=== PATIENT | male | born 1960 | race African-American/Black ===

== ENCOUNTER 2017-11-06 18:01 | Observation (INO) | payer SELFPAY ==
[~2017-11-06] VITALS: Ht 193 cm; Wt 246.8 kg
[2017-11-06] MEDS ORDERED: ASPIRIN 81 MG CHEW TAB PO ONE ×2 (18:15→22:30)
[2017-11-06 19:00] LABS: BASOPHILS % 0.3 % (0.0-1.0); EOSINOPHILS # (AUTO) 0.5 (0.0-0.4); EOSINOPHILS % 6.6 % (0.0-6.0); HEMATOCRIT 46.2 % (38.2-49.6); HEMOGLOBIN 14.1 g/dL (14.0-18.0); LYMPHOCYTES # (AUTO) 2.5 (1.0-3.2); LYMPHOCYTES % 33.8 % (18.0-39.1); MEAN CORPUSCULAR HEMOGLOBIN 27.5 pg (28-32); MEAN CORPUSCULAR HGB CONC 30.5 g/dL (31-35); MEAN CORPUSCULAR VOLUME 90.2 fL (81-99); MONOCYTES # (AUTO) 0.6 (0.2-0.8); MONOCYTES % 8.4 % (4.4-11.3); NEUTROPHILS # (AUTO) 3.7 (2.1-6.9); NEUTROPHILS % 50.6 % (38.7-80.0); PLATELET COUNT 231 x10e3/uL (140-360); RED BLOOD COUNT 5.12 x10e6/uL (4.3-5.7); RED CELL DISTRIBUTION WIDTH 14.1 % (11.7-14.4)
[2017-11-06 19:11] LABS: INR 1.11; PROTHROMBIN TIME 13.5 seconds (11.9-14.5)
[2017-11-06 19:12] LABS: PARTIAL THROMBOPLASTIN TIME 27.5 seconds (23.8-35.5)
--- NOTE | 2017-11-06 19:17 | Diagnostic Imaging Report ---
CHEST SINGLE (PORTABLE), 11/06/2017 6:09 PM Technique: CHEST SINGLE (PORTABLE) Comparison: None available. Clinical history: Chest pain Findings: See Impression Impression: Severely limited by portable technique and body habitus. Suggestion of diffuse bilateral opacities. Costophrenic angles are excluded. Recommend upright PA and lateral for better assessment. Signed by: Dr Rebecca Worthington MD on 11/06/2017 7:14 PM
[2017-11-06 19:18] LABS: ALANINE AMINOTRANSFERASE 16 IU/L (0-55); ALBUMIN 3.3 g/dL (3.5-5.0); ALBUMIN/GLOBULIN RATIO 0.6 (0.8-2.0); ALKALINE PHOSPHATASE 68 IU/L (40-150); ANION GAP 15.1 mmol/L (8-16); BLOOD UREA NITROGEN 12 mg/dL (7-26); BUN/CREATININE RATIO 9 (6-25); CALCIUM 9.5 mg/dL (8.4-10.2); CARBON DIOXIDE 28 mmol/L (22-29); CHLORIDE 99 mmol/L (98-107); CREATINE KINASE 778 IU/L (30-200); CREATININE, SERUM 1.37 mg/dL (0.72-1.25); EST GLOMERULAR FILTRATION RATE > 60 ML/MIN (60-); GLUCOSE 171 mg/dL (74-118); POTASSIUM 4.1 mmol/L (3.5-5.1); SODIUM 138 mmol/L (136-145)
--- NOTE | 2017-11-06 20:33 | Diagnostic Imaging Report ---
CHEST 2 VIEWS, Technique: CHEST 2 VIEWS Comparison: Earlier same day Clinical history: Intermittent chest pain , lateral view needed DISCUSSION: See impression IMPRESSION: Image quality somewhat degraded by soft tissue attenuation. 1. Borderline enlarged cardiac silhouette. 2. Central vascular congestion. No edema or consolidation. 3. No effusion or pneumothorax. Signed by: Dr Rebecca Worthington MD on 11/06/2017 8:30 PM
[2017-11-06 20:44] LABS: BILIRUBIN,URINE NEGATIVE (NEGATIVE); CLARITY,URINE HAZY (CLEAR); COLOR,URINE YELLOW (YELLOW); KETONES,URINE NEGATIVE (NEGATIVE); LEUKOCYTE ESTERASE ,URINE NEGATIVE (NEGATIVE); NITRITE,URINE NEGATIVE (NEGATIVE); PROTEIN,URINE DIPSTICK TRACE (NEGATIVE); URINE UROBILINOGEN 0.2 mg/dL (0.2 - 1)
[2017-11-06 20:48] LABS: BACTERIA,URINE FEW /HPF; EPITHELIAL CELLS,URINE FEW /LPF; RBC,URINE 0-5 /HPF (0-5); WBC,URINE (MAN) 0-5 /HPF (0-5)
[2017-11-06] MEDS ORDERED: AMARYL4 MG PO (22:18)
[2017-11-06] MEDS ORDERED: MORPHINE SULFATE 2 MG/ML SYR IV PRN (22:30)
[2017-11-06] MEDS ORDERED: DEXTROSE 50% SYRINGE 50 ML IV PRN (22:30)
[2017-11-06] MEDS ORDERED: ONDANSETRON HCL INJ 2 MG/ML VIAL IV PRN (22:30)
[2017-11-06] MEDS ORDERED: LISINOPRIL10 MG PO (22:44)
[2017-11-06] MEDS ORDERED: NOVOLIN N100 UNIT/1 (22:44)
[2017-11-06] MEDS ORDERED: BUMETANIDE1 MG PO (22:44)
[2017-11-06] MEDS ORDERED: ASPIR 8181 MG PO (22:44)
[2017-11-06 23:40] VITALS: BP 137/83
[2017-11-07] VITALS: BP 137/83
[2017-11-07 04:00] VITALS: BP 128/65
[2017-11-07 05:26] LABS: CHOL/HDL RATIO 3.1 (3.9-4.7)
[2017-11-07 05:39] LABS: CREATINE KINASE MB 3.5 ng/mL (0-5.0)
[2017-11-07] MEDS: INSULIN REGULAR, HUMAN 100 UNIT/1 ML 3ML VIAL SQ SCH ×2 (07:30→12:29)
[2017-11-07 07:46] VITALS: BP 112/66
[2017-11-07] MEDS ORDERED: GLIMEPIRIDE 2 MG TAB PO SCH (09:00)
[2017-11-07] MEDS ORDERED: ACETAMINOPHEN 325 MG TAB PO PRN (09:00)
[2017-11-07] MEDS ORDERED: ASPIRIN 81 MG CHEW TAB PO SCH (09:00)
[2017-11-07] MEDS ORDERED: NON-FORMULARY MEDICATION (Glimepiride (Amaryl) 4 MG) PO SCH (09:00)
[2017-11-07] MEDS ORDERED: LISINOPRIL 10 MG TAB PO SCH (09:00)
[2017-11-07] MEDS ORDERED: BUMETANIDE 1 MG TAB PO SCH (09:00)
--- NOTE | 2017-11-07 11:02 | History and Physical ---
CHIEF COMPLAINT: Chest pain. HISTORY OF PRESENT ILLNESS: This is a 57-year-old male, morbidly obese, more than 500 pounds, who comes into the ED with complaint of chest pain. Patient reports that the chest pain has been on and off for the last 2 weeks. He reports it is substernal with more pressure-like symptoms. Denies any radiation. He reports that about a year ago he had similar chest pain and was referred to a optical laboratory mechanic and was cleared. Patient was seen and evaluated at bedside on the medical floor, currently doing well with no other complaints. He is chest pain-free now. Due to his body habitus, he is unable to get a cardiac stress test or even if he needed a heart cath, it would be very difficult. I spoke with cardiology; and if his troponins are negative with a normal echo, he will be discharged later today. REVIEW OF SYSTEMS: Pertinent positives: Chest pain and palpitations. Pertinent negatives: Denies any nausea, vomiting, diarrhea, dysuria, hematuria, frequency, urgency, lightheadedness, dizziness, abdominal pain, headache, shortness breath, cough, congestion, fever or any other complaints. The rest of the 14-point review of systems have been reviewed with the patient and are negative. ALLERGIES: PROPRANOLOL. HOME MEDICATIONS: See med reconciliation form. PAST MEDICAL HISTORY: Morbidly obese, chest pain, diabetes, hypertension. SURGICAL HISTORY: None. FAMILY HISTORY: Hypertension and diabetes. SOCIAL HISTORY: No drugs. No alcohol. He does not smoke. VITAL SIGNS: He is afebrile, temperature 97.9, pulse 80, respiratory rate 16, blood pressure 112/66, pulse ox 95% on room air. LAB FINDINGS: White count 7.2, hemoglobin 14, hematocrit 46, platelets 231. Coagulation: PT 13, INR 1.1, PTT 27. Chemistries: Sodium 138, potassium 4.1, chloride 99, bicarbonate 24, anion gap of 15. BUN is 12, and creatinine is 1.37. His glucose was 171. His troponins were negative times 2. Albumin was 3.3, and LDL was 40. Urinalysis was negative. IMAGING STUDIES: Chest x-ray shows borderline enlarged cardiac silhouette. No edema or consolidation. Otherwise, no acute findings seen. No vascular congestion. PHYSICAL EXAMINATION GENERAL: Not in acute distress. Alert and oriented times 3. Cooperative on examination. He is morbidly obese. HEENT: Head is normocephalic and atraumatic. Eyes: Pupils are equal and reactive to light bilaterally. The extraocular movements are intact bilaterally. NECK: Supple with good range of motion. THROAT: No evidence of any erythema or exudates in the posterior pharynx, has poor dentition. PULMONARY: Clear to auscultation bilaterally. No wheezing, no rales, no rhonchi, no crackles appreciated. CARDIOVASCULAR: Positive S1, S2. No murmurs, rubs or gallops appreciated. ABDOMEN: Soft, nondistended, nontender to palpation. Bowel sounds present. MUSCULOSKELETAL: Strength is 5/5 throughout. No edema. No muscle deficit on examination. No weakness appreciated. NEUROLOGIC: Cranial nerves II through XII are grossly intact. No evidence of neurologic deficit. SKIN: Intact, warm to touch. Good cap refill. PSYCHIATRIC: Normal affect and mood. EXTREMITIES: No edema. Good range of motion throughout. IMPRESSION 1. Chest pain. 2. Morbidly obese. 3. Diabetes. 4. Hypertension. PLAN: At this time, I spoke with the optical laboratory mechanic. Due to the fact that the patient is unlikely to be able to get a stress test due to his body habitus, she agreed that if his next cardiac enzyme is negative, he will be discharged home. Also if his echo is normal, he will be discharged. We are going to resume all of his home medications with no changes in his regimen. I discussed this with the patient, which he agreed with plan of care. I also discussed this with the nurse. If the next cardiac enzyme and echo are normal, we will discharge home, and he needs to follow up with his PCP in 1 week. Job#: [id number]
[2017-11-07 11:29] VITALS: BP 131/80
--- NOTE | 2017-11-07 13:22 | Consultation ---
DATE OF CONSULTATION: November 07, 2017 CARDIOLOGY CONSULTATION REQUESTING PHYSICIAN: Dr. Daigle. REASON FOR CONSULTATION: Chest pain. 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 The patient reports he has had chest pain for the last 2 weeks. The pain is 4 out of 10 in severity without radiation, shortness of breath, nausea or diaphoresis. He was not able to characterize the chest pain. In addition, the patient has been complaining of palpitations for approximately a week and a half with episodes occurring intermittently, lasting from a few minutes to a few hours. He denies any edema, orthopnea or PND but notes he underwent nuclear stress test approximately 1 year ago which was normal. REVIEW OF SYSTEMS: Negative except as per HPI. PAST MEDICAL HISTORY 1. Diabetes mellitus. 2. 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 3. Hypertension. 4. Chronic kidney disease. 5. Morbid obesity. PAST SURGICAL HISTORY: Tonsillectomy. ALLERGIES: PLEASE SEE EMR. MEDICATIONS: Please see medication list. SOCIAL HISTORY: Denies tobacco, alcohol or illicit drugs. FAMILY HISTORY: Pertinent for a father who of a myocardial infarction. PHYSICAL EXAMINATION VITAL SIGNS: Temperature 97.9 degrees, pulse 89, respiratory rate 16, blood pressure 112/66, oxygen saturation 95% on room air. GENERAL: A morbidly obese man in no acute distress. HEENT: Normocephalic, atraumatic. Pupils equal, no scleral icterus. NECK: Supple. No thyromegaly or cervical lymphadenopathy, no carotid bruits. LUNGS: Clear to auscultation bilaterally. No wheezes or crackles. CARDIOVASCULAR: Normal rate, regular rhythm. No murmur appreciated. Normal S1 and S2. Distant heart sounds. ABDOMEN: Soft, nontender. EXTREMITIES: No edema. Right lower extremity with lymphedema present. NEURO: Nonfocal exam. LABS: WBC 7.28, hemoglobin 14.1, hematocrit 46.2, platelets 231. Sodium 138, potassium 4.1, chloride 99, CO2 28, BUN 12, creatinine 1.37. Troponin 0.017. Triglycerides 168, cholesterol 110, LDL 40, HDL 36. CHEST X-RAY: Borderline enlarged cardiac silhouette. Central vascular congestion. No edema or consolidation. No effusion or pneumothorax. ELECTROCARDIOGRAM: With normal sinus rhythm, left axis deviation and low voltage QRS. IMPRESSION 1. Chest pain. 2. 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 3. Diabetes mellitus. 4. Hypertension. 5. Chronic kidney disease. 6. Morbid obesity. RECOMMENDATIONS: Trend cardiac enzymes to rule out myocardial infarction. Echocardiogram has been ordered, and we will review the images once it is done. Unfortunately, due to the patient's body habitus he exceeds the weight limit for both the nuclear camera as well as the cath table. Continue home cardiac medications. If he rules out for a myocardial infarction and echocardiogram is unremarkable, he may be discharged home to follow up as an outpatient. Thank you for this consult. We will continue to follow. Job#: [id number] ENEIDA
[2017-11-07 15:03] LABS: CREATINE KINASE 474 IU/L (30-200)
[2017-11-07 15:36] VITALS: BP 121/58
--- NOTE | 2017-11-08 13:07 | Discharge Summary ---
DISCHARGE DIAGNOSES 1. Chest pain likely atypical. 2. Morbidly obese. 3. Type 2 diabetes. 4. Hypertension. SOCIAL SERVICES COUNSELOR: Cardiology. VITAL SIGNS: His temperature is 97.9, pulse 77, respiratory rate is 19, blood pressure 121/58, pulse ox 96% on room air. LAB FINDINGS: Show white count 7.2, hemoglobin 14, hematocrit is 46, platelets of 231. Coagulations are normal. CHEMISTRY: Sodium was 138, his potassium was 4.1, his chloride is 99, his bicarbonate is 28, his BUN is 12, his creatinine was normal at 1.37 and his glucose is 171. His LFTs were normal. His troponins were negative times 3. Albumin was 3.3. LDL was 40. Urinalysis was negative. MICROBIOLOGY: None. IMAGING STUDIES: Chest x-ray showed central vascular congestion, no edema or consolidation. No effusion or pneumothorax. Otherwise no other issues there. A 2-D echo, EF was 55%. HOSPITAL COURSE: A 57-year-old morbidly obese male with known history of diabetes and hypertension and hyperlipidemia comes into the ED with complaint of substernal chest pain several days prior to arrival to the ED. Cardiology was consulted. Due to the patient's body habitus of 500 pounds, it would be very difficult to do a cardiac stress test. Instead, the community service coordinator advised just a 2-D echo and cardiac enzymes. His cardiac enzymes were negative times 3, and 2D echo showed an EF of 55%. Patient has been cleared by Cardiology for discharge home. In the future he will need to have a cardiac stress test likely in the [facility] to accommodate patient's body weight for a cardiac stress test. Patient otherwise was doing well, denies any chest pain prior to discharge home. On the day of discharge, vital signs stable, labs reviewed and stable, patient seen and evaluated and examined thoroughly on the day of discharge with no other complaints. Patient verbalized understanding and agrees with plan of care to follow up accordingly as an outpatient with the primary care physician in 1 week and community service coordinator in 1 to 2 weeks. DISCHARGE MEDICATIONS: See med reconciliation form. DISPOSITION: To home. CONDITION: Stable. DIET: Heart healthy. FOLLOWUP: With your primary care physician in 1 week, community service coordinator in 2 weeks. In the event of any worsening symptoms, patient advised to come back to the ED for further evaluation. Discharge summary took greater than 35 minutes. ANAHY CASH MD Job#: [id number] EV
== END 2017-11-07 16:40 | disposition home or self-care (01) ==
LOC: ER 18:01 → IMCU 22:16
PROVIDERS: ADMIT Internal Medicine; ATTEND Internal Medicine
DX: R07.9 Chest pain, unspecified (principal); E66.01 Morbid (severe) obesity due to excess calories; I89.0 Lymphedema, not elsewhere classified; Z88.8 Allergy status to other drugs, medicaments and biological substances; Z83.3 Family history of diabetes mellitus; Z82.49 Family history of ischemic heart disease and other diseases of the circulatory system; I13.0 Hypertensive heart and chronic kidney disease with heart failure and stage 1 through stage 4 chronic kidney disease, or unspecified chronic kidney disease; E11.22 Type 2 diabetes mellitus with diabetic chronic kidney disease; N18.9 Chronic kidney disease, unspecified; I50.22 Chronic systolic (congestive) heart failure; E78.5 Hyperlipidemia, unspecified; Z68.44 Body mass index [BMI] 60.0-69.9, adult
CPT/HCPCS: 36415 ×2; 71045; 71046; 80053; 80061; 81001; 82550 ×2; 82553 ×2; 82948; 83880; 84484 ×2; 85025; 85610; 85730; 93005; 93306; 99284; G0378 ×2